=== PATIENT | male | born 1990 | race African-American/Black ===

== ENCOUNTER 2016-12-26 16:11 | Emergency (ER) | payer SELFPAY ==
[2016-12-26 16:22] VITALS: BP 139/77; PULSE 75; RESP 18; TEMP 97.9; O2SAT 99
--- NOTE | 2016-12-26 17:38 | RADRPT ---
EXAM DATE/TIME: 12/26/2016 17:17 [facility] COMPARISON: No previous studies available for comparison. INDICATIONS : Complains of left side chest pain. MEDICAL HISTORY : None. SURGICAL HISTORY : Thoracentesis left ENCOUNTER: Initial ACUITY: 3 days PAIN SCORE: 4/10 LOCATION: Bilateral chest FINDINGS: The costophrenic angles are blunted indicative of small effusions. The lungs are well aerated and neymar ar. There is no evidence of pneumothorax. Heart and mediastinal structures appear normal. CONCLUSION: Minimal bilateral pleural effusions. No evidence of pneumothorax or acute cardiopulmonary process. Tyshawn Mireles MD on December 26, 2016 at 17:36 Board Certified Radiologist. This report was verified electronically.
--- NOTE | 2016-12-26 17:55 | PD ---
HPI . Short of breath Chief Complaint: Respiratory Symptoms Time Seen by Provider: 16:53 Travel History International Travel<30 days: No Contact w/Intl Traveler<30days: No Traveled to known affect area: No History of Present Illness HPI 26-year-old male patient presents emergency department for evaluation of shortness of breath laying down. Patient states he came to [place] from [place] earlier this year that last year in 2016 when he was still in [place] he had what he describes as "water on his left long that they were able to aspirate with a needle" patient denies any chest tubes or cardiac comorbidities. Patient states he has noticed himself becoming short of breath when he lays down and was concerned due to his history. Patient denies any cough, fevers, chills, chest pain, malaise, lightheadedness, abdominal pain, nausea, vomiting, diarrhea, dysuria. Patient states his only major medical history is what he described as a lung effusion or pneumothorax and malaria when he was in grade school. PFSH Past Medical History Diminished Hearing: No Medical other: Yes ([place]) Respiratory: Yes (POSSIBLE PLEURAL EFFUSION-DRAINED.) Immunizations Current: No Social History Alcohol Use: No Tobacco Use: No Substance Use: No Allergies-Medications (Allergen,Severity, Reaction): Coded Allergies: No Known Allergies (Unverified , 12/26/16) Reported Meds & Prescriptions Reported Meds & Active Scripts Active No Active Prescriptions or Reported Medications Review of Systems Except as stated in HPI: all other systems reviewed are Neg Physical Exam Narrative GENERAL: Well-nourished, well-developed 26-year-old male patient in no acute distress. Nontoxic appearing. SKIN: Focused skin assessment warm/dry. HEAD: Normocephalic. Atraumatic. EYES: No scleral icterus. No injection or drainage. NECK: Supple, trachea midline. No JVD or lymphadenopathy. CARDIOVASCULAR: Regular rate and rhythm without murmurs, gallops, or rubs. RESPIRATORY: Breath sounds equal bilaterally. No accessory muscle use. GASTROINTESTINAL: Abdomen soft, non-tender, nondistended. MUSCULOSKELETAL: No cyanosis, or edema. BACK: Nontender without obvious deformity. No CVA tenderness. Data Data Last Documented VS Vital Signs Date Time Temp Pulse Resp B/P (MAP) Pulse Ox O2 Delivery O2 Flow Rate FiO2 12/26/16 17:05 16 99 Room Air 12/26/16 16:22 97.9 75 139/77 (97) Orders Orders Chest, Single Ap (12/26/16 17:03) MDM Medical Decision Making Medical Screen Exam Complete: Yes Emergency Medical Condition: Yes Differential Diagnosis Differential diagnoses include but not limited to spontaneous pneumothorax, pleural effusion, pneumonia Narrative Course Chest x-ray shows minimal bilateral pleural effusions. Patient case discussed with my attending Dr. Tabor and no further treatment in the emergency department is recommended. Based on patient's symptoms, clinical presentation, radiological results, vital sign review and physical exam it is not necessary to admit the patient to the hospital or keep the patient in the emergency department for further evaluation. Patient will be discharged home with instructions to follow-up with his primary care physician. Diagnosis Primary Impression: Shortness of breath Patient Instructions: General Instructions, Shortness of Breath (GEN) Additional Instructions: Please return to emergency department if your symptoms return or worsen. Follow up with your primary care provider. Scripts No Active Prescriptions or Reported Meds Disposition: 01 DISCHARGE HOME Condition: Stable Kaila Kaplan Dec 26, 2016 17:55
== END 2016-12-26 18:12 | disposition home or self-care (01) ==
LOC: PHEFT 16:11
DX: R06.02 Shortness of breath (principal)
CPT/HCPCS: 71010; 99283